=== PATIENT | female | born 1940 | race Caucasian/White ===

== ENCOUNTER 2016-03-31 14:12 | Inpatient (IN) | payer MEDICARE, OTHER ==
--- NOTE | 2016-03-31 14:52 | ED ---
General Adult HPI - General Chief complaint: Weakness Stated complaint: Weakness Time Seen by Provider: 03/31/16 14:32 Source: patient, family, EMS, RN notes reviewed Mode of arrival: EMS Limitations: physical limitation - History of Present Illness Initial comments: Patient is a pleasant 75-year-old female presenting to the emergency Department with increased weakness. Patient has been under emotional stress for the past 4 days. Patient has been somewhat weak, especially today. Patient has redness of the mouth and around the PEG tube. Patient and family have noticed some drainage from the PEG tube. Patient had PEG tube placed in the spring secondary to not eating well however overall patient has been eating well recently. Patient does complain of sore throat. No chest pain. No dyspnea. EMS reported fever however patient had not documented fever in the emergency department. - Related Data Home Medications Medication Instructions Recorded Confirmed Lisinopril [Zestril] 10 mg PEG/G-TUBE BID 05/20/15 03/31/16 Pregabalin [Lyrica] 75 mg PEG/G-TUBE HS 05/20/15 03/31/16 ALPRAZolam [Xanax] 0.25 mg PEG/G-TUBE BID 08/15/15 03/31/16 Albuterol Nebulized [Ventolin 2.5 mg INHALATION RT-QID PRN 08/15/15 03/31/16 Nebulized] Pregabalin [Lyrica] 150 mg PEG/G-TUBE QAM 08/15/15 03/31/16 Atenolol [Tenormin] 50 mg PEG/G-TUBE BID 03/31/16 03/31/16 HYDROcodone/APAP 10-325MG [[place] 1 tab PEG/G-TUBE DAILY 03/31/16 03/31/16 10-325] Levothyroxine Sodium [Synthroid] 50 mcg PEG/G-TUBE DAILY 03/31/16 03/31/16 Meloxicam [Mobic] 7.5 mg PO BID 03/31/16 03/31/16 Omeprazole 20 mg PEG/G-TUBE BID 03/31/16 03/31/16 Tiotropium [place] [Spiriva] 1 cap INHALATION RT-DAILY 03/31/16 03/31/16 buPROPion HCL [buPROPion HCL SR] 150 mg PEG/G-TUBE BID 03/31/16 03/31/16 Allergies Allergy/AdvReac Type Severity Reaction Status Date / Time Iodinated Contrast Media - Allergy Unknown Verified 03/31/16 15:09 Oral and Review of Systems ROS Statement: Those systems with pertinent positive or pertinent negative responses have been documented in the HPI. ROS Other: All systems not noted in ROS Statement are negative. Constitutional: Reports: weakness. Denies: chills Eyes: Denies: eye pain ENT: Reports: throat pain. Denies: ear pain Respiratory: Reports: cough Cardiovascular: Denies: chest pain Endocrine: Reports: fatigue Gastrointestinal: Denies: abdominal pain, vomiting Genitourinary: Denies: dysuria Musculoskeletal: Denies: back pain Skin: Reports: rash Neurological: Reports: weakness Past Medical History Past Medical History: Cancer, COPD, Fibromyalgia, GERD/Reflux, Hyperlipidemia, Hypertension, Osteoarthritis (OA), Pneumonia Additional Past Medical History / Comment(s): Lung cancer, UTI, after lung sx had fluid around the heart History of Any Multi-Drug Resistant Organisms: MRSA Date of last positivie culture/infection: 08/15/15 MDRO Source:: sputum Past Surgical History: Cholecystectomy, Hysterectomy, Tonsillectomy Additional Past Surgical History / Comment(s): neck sx x 2 fusions, left lobectomy, rt hip broken-had sx to repair-pt poor historian as to what was done.cataracts Past Anesthesia/Blood Transfusion Reactions: No Reported Reaction Past Psychological History: Depression Additional Psychological History / Comment(s): . Prior smoker. No experience. No international travel. No animals in the home Smoking Status: Former smoker Past Alcohol Use History: None Reported Additional Past Alcohol Use History / Comment(s): started smoking at age 18, stopped in 2006 Past Drug Use History: None Reported - Past Family History Father Family Medical History: Dementia Additional Family Medical History / Comment(s): lived to be 92 Mother Family Medical History: Hypertension Additional Family Medical History / Comment(s): lived to be 93 General Exam Limitations: physical limitation General appearance: alert, in no apparent distress Head exam: Present: atraumatic Eye exam: Present: normal appearance, PERRL ENT exam: Present: normal oropharynx Neck exam: Present: normal inspection Respiratory exam: Present: rhonchi Cardiovascular Exam: Present: regular rate, normal rhythm GI/Abdominal exam: Present: soft, other (PEG tube present with approximately 3 cm circumferential surrounding erythema with dryness.). Absent: tenderness Extremities exam: Present: normal inspection Neurological exam: Present: alert. Absent: motor sensory deficit Psychiatric exam: Present: normal affect, normal mood Skin exam: Present: rash (Erythema with bilateral lateral lips and around PEG tube site.) Course Vital Signs 03/31/16 14:32 Temperature 98.0 F Pulse Rate 71 Respiratory 17 Rate Blood Pressure 157/69 O2 Sat by Pulse 97 Oximetry - Reevaluation(s) Reevaluation #1: 03/31/16 14:50 Oral temperature by myself at 99.0 EKG Findings - EKG Comments: EKG Findings:: Normal sinus rhythm at 73. OH 162. QRS 104. QT 416. QTC 458. Normal axis. Normal QRS. No acute ST change. Medical Decision Making - Medical Decision Making Patient reexamined and resting comfortably in bed. Patient and family updated. Case was discussed in detail with Dr. Bond, who will admit his patient with consult for Dr. Gordon and infectious disease. - Lab Data Result diagrams: 03/31/16 17:55 03/31/16 15:15 Lab Results 03/31/16 03/31/16 03/31/16 Range/Units 15:15 15:15 15:15 WBC (3.8-10.6) k/uL RBC (3.80-5.40) m/uL Hgb (11.4-16.0) gm/dL Hct (34.0-46.0) % MCV (80.0-100.0) fL MCH (25.0-35.0) pg MCHC (31.0-37.0) g/dL RDW (11.5-15.5) % Plt Count (150-450) k/uL Neutrophils % % Lymphocytes % % Monocytes % % Eosinophils % % Basophils % % Neutrophils # (1.3-7.7) k/uL Lymphocytes # (1.0-4.8) k/uL Monocytes # (0-1.0) k/uL Eosinophils # (0-0.7) k/uL Basophils # (0-0.2) k/uL Hypochromasia Anisocytosis PT (9.0-12.0) sec INR (<1.1) APTT (22.0-30.0) sec Sodium 143 (137-145) mmol/L Potassium 4.9 (3.5-5.1) mmol/L Chloride 115 H (98-107) mmol/L Carbon Dioxide 22 (22-30) mmol/L Anion Gap 6 mmol/L BUN 21 H (7-17) mg/dL Creatinine 0.80 (0.52-1.04) mg/dL Est GFR (MDRD) Af Amer >60 (>60 ml/min/1.73 sqM) Est GFR (MDRD) Non-Af >60 (>60 ml/min/1.73 sqM) Glucose 81 (74-99) mg/dL Plasma Lactic Acid [place] 0.9 (0.7-2.0) mmol/L Calcium 8.6 (8.4-10.2) mg/dL Total Bilirubin 0.2 (0.2-1.3) mg/dL AST 18 (14-36) U/L ALT 27 (9-52) U/L Alkaline Phosphatase 56 (38-126) U/L Total Creatine Kinase 34 (30-135) U/L CK-MB (CK-2) 0.7 (0.0-2.4) ng/mL CK-MB (CK-2) Rel Index 2.1 Troponin I <0.012 (0.000-0.034) ng/mL Total Protein 4.9 L (6.3-8.2) g/dL Albumin 2.9 L (3.5-5.0) g/dL Cortisol 6 ug/dL Urine Color Urine Appearance (Clear) Urine pH (5.0-8.0) Ur Specific [place] (1.001-1.035) Urine Protein (Negative) Urine Glucose (UA) (Negative) Urine Ketones (Negative) Urine Blood (Negative) Urine Nitrate (Negative) Urine Bilirubin (Negative) Urine Urobilinogen (<2.0) mg/dL Ur Leukocyte Esterase (Negative) Urine RBC (0-5) /hpf Urine WBC (0-5) /hpf Urine WBC Clumps (None) /hpf Ur Squamous Epith Cells (0-4) /hpf Urine Bacteria (None) /hpf Group A Strep Rapid (Negative) 03/31/16 03/31/16 03/31/16 Range/Units 15:18 15:30 17:14 WBC (3.8-10.6) k/uL RBC (3.80-5.40) m/uL Hgb (11.4-16.0) gm/dL Hct (34.0-46.0) % MCV (80.0-100.0) fL MCH (25.0-35.0) pg MCHC (31.0-37.0) g/dL RDW (11.5-15.5) % Plt Count (150-450) k/uL Neutrophils % % Lymphocytes % % Monocytes % % Eosinophils % % Basophils % % Neutrophils # (1.3-7.7) k/uL Lymphocytes # (1.0-4.8) k/uL Monocytes # (0-1.0) k/uL Eosinophils # (0-0.7) k/uL Basophils # (0-0.2) k/uL Hypochromasia Anisocytosis PT 10.6 (9.0-12.0) sec INR 1.1 (<1.1) APTT 23.1 (22.0-30.0) sec Sodium (137-145) mmol/L Potassium (3.5-5.1) mmol/L Chloride (98-107) mmol/L Carbon Dioxide (22-30) mmol/L Anion Gap mmol/L BUN (7-17) mg/dL Creatinine (0.52-1.04) mg/dL Est GFR (MDRD) Af Amer (>60 ml/min/1.73 sqM) Est GFR (MDRD) Non-Af (>60 ml/min/1.73 sqM) Glucose (74-99) mg/dL Plasma Lactic Acid [place] (0.7-2.0) mmol/L Calcium (8.4-10.2) mg/dL Total Bilirubin (0.2-1.3) mg/dL AST (14-36) U/L ALT (9-52) U/L Alkaline Phosphatase (38-126) U/L Total Creatine Kinase (30-135) U/L CK-MB (CK-2) (0.0-2.4) ng/mL CK-MB (CK-2) Rel Index Troponin I (0.000-0.034) ng/mL Total Protein (6.3-8.2) g/dL Albumin (3.5-5.0) g/dL Cortisol ug/dL Urine Color Colorless Urine Appearance Clear (Clear) Urine pH 5.5 (5.0-8.0) Ur Specific [place] 1.005 (1.001-1.035) Urine Protein Negative (Negative) Urine Glucose (UA) Negative (Negative) Urine Ketones Negative (Negative) Urine Blood Negative (Negative) Urine Nitrate Negative (Negative) Urine Bilirubin Negative (Negative) Urine Urobilinogen <2.0 (<2.0) mg/dL Ur Leukocyte Esterase Small H (Negative) Urine RBC <1 (0-5) /hpf Urine WBC 8 H (0-5) /hpf Urine WBC Clumps Rare H (None) /hpf Ur Squamous Epith Cells 1 (0-4) /hpf Urine Bacteria Occasional H (None) /hpf Group A Strep Rapid Negative (Negative) 03/31/16 Range/Units 17:55 WBC 5.8 (3.8-10.6) k/uL RBC 3.77 L (3.80-5.40) m/uL Hgb 10.1 L (11.4-16.0) gm/dL Hct 32.8 L (34.0-46.0) % MCV 87.1 (80.0-100.0) fL MCH 26.7 (25.0-35.0) pg MCHC 30.7 L (31.0-37.0) g/dL RDW 17.8 H (11.5-15.5) % Plt Count 252 (150-450) k/uL Neutrophils % 74 % Lymphocytes % 16 % Monocytes % 6 % Eosinophils % 2 % Basophils % 0 % Neutrophils # 4.3 (1.3-7.7) k/uL Lymphocytes # 0.9 L (1.0-4.8) k/uL Monocytes # 0.3 (0-1.0) k/uL Eosinophils # 0.1 (0-0.7) k/uL Basophils # 0.0 (0-0.2) k/uL Hypochromasia Marked Anisocytosis Slight PT (9.0-12.0) sec INR (<1.1) APTT (22.0-30.0) sec Sodium (137-145) mmol/L Potassium (3.5-5.1) mmol/L Chloride (98-107) mmol/L Carbon Dioxide (22-30) mmol/L Anion Gap mmol/L BUN (7-17) mg/dL Creatinine (0.52-1.04) mg/dL Est GFR (MDRD) Af Amer (>60 ml/min/1.73 sqM) Est GFR (MDRD) Non-Af (>60 ml/min/1.73 sqM) Glucose (74-99) mg/dL Plasma Lactic Acid [place] (0.7-2.0) mmol/L Calcium (8.4-10.2) mg/dL Total Bilirubin (0.2-1.3) mg/dL AST (14-36) U/L ALT (9-52) U/L Alkaline Phosphatase (38-126) U/L Total Creatine Kinase (30-135) U/L CK-MB (CK-2) (0.0-2.4) ng/mL CK-MB (CK-2) Rel Index Troponin I (0.000-0.034) ng/mL Total Protein (6.3-8.2) g/dL Albumin (3.5-5.0) g/dL Cortisol ug/dL Urine Color Urine Appearance (Clear) Urine pH (5.0-8.0) Ur Specific [place] (1.001-1.035) Urine Protein (Negative) Urine Glucose (UA) (Negative) Urine Ketones (Negative) Urine Blood (Negative) Urine Nitrate (Negative) Urine Bilirubin (Negative) Urine Urobilinogen (<2.0) mg/dL Ur Leukocyte Esterase (Negative) Urine RBC (0-5) /hpf Urine WBC (0-5) /hpf Urine WBC Clumps (None) /hpf Ur Squamous Epith Cells (0-4) /hpf Urine Bacteria (None) /hpf Group A Strep Rapid (Negative) - Radiology Data Radiology results: image reviewed (Chest x-ray shows postoperative changes. Left pneumonectomy.) Disposition Clinical Impression: Cellulitis Disposition: ADMITTED IP TO THIS HOSP
[2016-03-31 15:37] LABS: ALT 27 U/L (9-52); AST 18 U/L (14-36); Alkaline Phosphatase 56 U/L (38-126); Anion Gap 6 mmol/L; Blood Urea Nitrogen 21 mg/dL (7-17); Calcium 8.6 mg/dL (8.4-10.2); Carbon Dioxide 22 mmol/L (22-30); Chloride 115 mmol/L (98-107); Glucose 81 mg/dL (74-99); Non-African American GFR(MDRD) >60 (>60 ml/min/1.73 sqM); Potassium 4.9 mmol/L (3.5-5.1); Sodium 143 mmol/L (137-145); Total Bilirubin 0.2 mg/dL (0.2-1.3); Total Protein 4.9 g/dL (6.3-8.2)
[2016-03-31 15:45] LABS: Creatine Kinase 34 U/L (30-135)
--- NOTE | 2016-03-31 15:55 | XR ---
EXAMINATION TYPE: XR chest 2V DATE OF EXAM: 03/31/2016 3:38 PM COMPARISON: Prior chest x-ray 05 September 2015 HISTORY: Fever, weakness, lung carcinoma TECHNIQUE: Frontal and lateral views of the chest are obtained. FINDINGS: Patient is status post left pneumonectomy, there is volume loss in the left chest, compens atory emphysema in the right chest. Postop changes noted to the cervical spine and in the right upper quadrant. Strand-like densities, hyperinflation in the right lung suggests underlying emphysema as o n prior exam. IMPRESSION: Postop changes. Probable pleural thickening, scarring in the right chest. Emphysema.
[2016-03-31 15:58] LABS: Creatine Kinase MB 0.7 ng/mL (0.0-2.4); Troponin I <0.012 ng/mL (0.000-0.034)
[2016-03-31 16:16] LABS: INR 1.1 (<1.1); Partial Thromboplastin Time 23.1 sec (22.0-30.0); Prothrombin Time 10.6 sec (9.0-12.0)
[2016-03-31] MEDS: SODIUM CHLORIDE 0.9% 500 ML IV SCH (16:17)
[2016-03-31 17:30] LABS: Appearance,Urine Clear (Clear); Bacteria,Urine Occasional /hpf; Bilirubin,Urine Negative (Negative); Glucose,Urine (UA) Negative (Negative); Ketones,Urine Negative (Negative); Leukocyte Esterase,Urine Small (Negative); Nitrite,Urine Negative (Negative); PH, Urine 5.5 (5.0-8.0); Particle Count 2719; Protein,Urine Negative (Negative); RBC,Urine <1 /hpf (0-5); Specific Gravity,Urine 1.005 (1.001-1.035); Squamous Epithelial Cell,Urine 1 /hpf (0-4); UA Billing (MACRO vs. MICRO) MICRO; Urobilinogen,Urine <2.0 mg/dL (<2.0); WBC,Urine 8 /hpf (0-5)
[2016-03-31 18:12] LABS: Anisocytosis Slight; Basophils % (A) 0 %; CH 25.9; CHCM 29.9; Eosinophils # (A) 0.1 k/uL (0-0.7); Eosinophils % (A) 2 %; HCT 32.8 % (34.0-46.0); HDW 2.67; HGB 10.1 gm/dL (11.4-16.0); Hypochromasia Marked; Luc # (Auto) 0.12; Luc % (Auto) 2; Lymphocytes # (A) 0.9 k/uL (1.0-4.8); Lymphocytes % (A) 16 %; MCH 26.7 pg (25.0-35.0); MCHC 30.7 g/dL (31.0-37.0); MCV 87.1 fL (80.0-100.0); Mean Platelet Volume 7.7; Monocytes # (A) 0.3 k/uL (0-1.0); Monocytes % (A) 6 %; Neutrophils # (A) 4.3 k/uL (1.3-7.7); Neutrophils % (A) 74 %; RBC 3.77 m/uL (3.80-5.40); RDW 17.8 % (11.5-15.5); WBC 5.8 k/uL (3.8-10.6); WBC (Perox) 5.96
[2016-03-31] MEDS ORDERED: NALOXONE 0.4 MG/ML 1 ML VIAL IV PRN (19:33)
[2016-03-31] MEDS ORDERED: AMPICILLIN-SULBACTAM 1.5 GM in SODIUM CHLORIDE 0.9% 50 ML IVPB STA (19:36)
[2016-03-31] MEDS: SODIUM CHLORIDE 0.9% 1,000 ML IV SCH (19:45)
[2016-03-31] MEDS ORDERED: FLUCONAZOLE IN NACL,ISO-OSM 200 MG in SALINE 1 100ML.BAG IVPB SCH (19:45)
[2016-03-31] MEDS: PANTOPRAZOLE 40 MG/10 ML VIAL IV SCH (23:09)
[2016-03-31 23:15] LABS: Creatine Kinase 30 U/L (30-135)
[2016-03-31 23:29] LABS: Creatine Kinase MB 0.7 ng/mL (0.0-2.4); Troponin I <0.012 ng/mL (0.000-0.034)
[2016-04-01] MEDS: AMPICILLIN-SULBACTAM 1.5 GM in SODIUM CHLORIDE 0.9% 50 ML IVPB SCH ×5 (00:48→23:17)
[2016-04-01 04:18] LABS: Creatine Kinase 27 U/L (30-135)
[2016-04-01 04:31] LABS: Creatine Kinase MB 0.7 ng/mL (0.0-2.4); Troponin I <0.012 ng/mL (0.000-0.034)
[2016-04-01] MEDS ORDERED: ALBUTEROL NEBULIZED 2.5 MG/3 ML INHALATION PRN (07:58)
[2016-04-01] MEDS ORDERED: NON-FORMULARY DRUG (Omeprazole [Omeprazole] 20 MG) PEG/G-TUBE SCH (09:00)
[2016-04-01] MEDS: ALPRAZolam 0.5 MG TAB PEG/G-TUBE SCH ×2 (09:13→21:00)
[2016-04-01] MEDS: ATENOLOL 50 MG TAB PEG/G-TUBE SCH ×2 (09:13→21:00)
[2016-04-01] MEDS: LEVOTHYROXINE 50 MCG TAB PEG/G-TUBE SCH (09:14)
[2016-04-01] MEDS: LISINOPRIL 10 MG TAB PEG/G-TUBE SCH ×2 (09:14→21:00)
[2016-04-01] MEDS: MELOXICAM 7.5 MG TAB PO SCH ×2 (09:14→21:00)
[2016-04-01] MEDS: PREGABALIN 75 MG CAP PEG/G-TUBE SCH (09:16)
[2016-04-01] MEDS: HYDROcodone/APAP 10-325MG 1 EACH TAB PEG/G-TUBE PRN ×2 (09:36→16:05)
[2016-04-01] MEDS: buPROPion SR 150 MG TABLET.ER PO SCH ×2 (10:51→21:00)
[2016-04-01] MEDS: PANTOPRAZOLE 40 MG/10 ML VIAL IV SCH (10:51)
[2016-04-01] MEDS: TIOTROPIUM 18 MCG/PUFF INHALER INHALATION SCH (11:46)
[2016-04-01] MEDS: SODIUM CHLORIDE 0.9% 1,000 ML IV SCH ×2 (12:31→22:50)
[2016-04-01] MEDS ORDERED: IV VANCOMYCIN PER PHARMACY 1 EACH MISC MISCELLANE PRN (13:12)
[2016-04-01] MEDS: VANCOMYCIN 750 MG in SODIUM CHLORIDE 0.9% 250 ML IVPB SCH (14:14)
[2016-04-01] MEDS: NYSTATIN 100,000UNIT/GM CREAM 30 GM TUBE TOPICAL SCH ×2 (14:16→21:01)
[2016-04-01 14:26] VITALS: BMI 17.6
--- NOTE | 2016-04-01 15:39 | HP ---
DATE OF ADMISSION: 03/31/2016 CHIEF COMPLAINT: Severe weakness. HISTORY OF PRESENT ILLNESS: 75-year-old white female that came to my office. She was brought into the back door. Unfortunately, she was so weak she could not get out of the car, even though she had tremendous amount of weakness and at that period of time EMS were there, vital signs were stable and she was taken to the hospital. She had a low-grade fever supposedly at home. She has a past medical history of being at [facility] in July. She was admitted that time with pneumonia and right-sided felt it was probably aspiration type. She was followed up at that time with Dr. Horner and was treated with antibiotics and sent home. 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 There was an unknown site, but positive lymph node so she was treated aggressively with chemotherapy per Dr. Kevin and also radiation per Dr. Nguyễn. She has a past medical history of type 2 diabetes, which was in good control. She had non-small cell carcinoma of the lung 11 years ago and had pneumectomy with it with chemotherapy and has been followed very carefully by both myself and Dr. Kevin and has had no exacerbation. She, from a surgical standpoint, she has had a cholecystectomy. She has had neck surgery, cervical spine with Dr. Killian. She had pneumectomy for carcinoma of the lung. She had a hysterectomy and a tonsillectomy. She has had long-standing history of chronic obstructive pulmonary disease. ALLERGIES: JUST TO THE CONTRAST DYE IN GENERAL. She has a long-standing history of ( ). She has had MRSA in the past, it was in her sputum and that culture was in July 2015. MEDICATIONS: 1. Albuterol updrafts up to 4 times a day. 2. She usually uses Duoneb 4 times a day. 3. She uses Flonase nasal spray in each nostril once a day. 4. Spiriva 18 mg daily. 5. [place] 7.5/325 about every 6 hours. 6. Atenolol 25 b.i.d. 7. BuSpar twice a day. 8. She is on Celexa 20 mg daily. 9. Klonopin patch 0.2 on . 10. Pepcid 20 twice a day. 11. She gets lactulose up to 15 mL at bedtime for constipation. 12. Lisinopril 10 mg twice a day. 13. Lyrica 75 mg at lunch and 150 at bedtime for fibromyalgia. 14. Xanax 0.25 p.r.n. anxiety. REVIEW OF SYSTEMS: CARDIOPULMONARY: She has really had no cough, no true chest pain. Minimal to no shortness of breath, which is very weak. GI: She has had a long-time decrease in appetite and she does use her bolus feedings up to 3 times a day and appears to have a rash around the abdomen on further investigation. She has not been constipated but there has been no diarrhea and no true vomiting. GENITOURINARY: She has had a history of urinary tract infections in the past, multiple different types of organisms and has been on IV antibiotics accordingly. NEUROMUSCULAR: Just weak in general, though she has been ambulatory on her own. She has had someone drive her back and forth to the office for the last several years. Physical examination at this period of time: Blood pressure is 145/66, heart rates in the 70s, temperature 95, respiratory rate is 20. ENT: She has a dry mouth. Neck is supple. Chest: Course in the non-pneumectomy side of the lung is clear to auscultation. Heart is sinus rhythm at this time with no murmur. ABDOMEN: Soft. She has got irritation around the ( ) that I can see around the NG tube it looks to be more mycotic but we will get a surgical decision with Dr. Gordon. ABDOMEN: Soft, nontender, with no organomegaly. EXTREMITIES: Lower extremities are negative. ASSESSMENT: 1. Cellulitis of the abdomen. 2. History of chronic obstructive pulmonary disease. 3. History of urinary tract infection and past. 4. Previous pneumectomy for cancer of the lung. 5. Recent squamous cell cancer of the neck treated with aggressive radiation and chemotherapy. 6. Chronic esophagitis treated with PEG tube feedings. 7. Constipation. 8. Hypertension. 9. Fibromyalgia. 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 11. History of gastroesophageal reflux disease. PLAN: The chest x-ray was completed, which showed no acute changes. Her urine being cultured. Her throat was cultured for strep throat. Still waiting for the results of that. Wound culture was done of the area of irritation by the PEG tube. We will get a surgical consultation. She was initially started on Augmentin and Diflucan IV every 6 hours. Please refer to my orders.
--- NOTE | 2016-04-01 16:21 | P.GSHP ---
History of Present Illness H&P Date: 04/01/16 Chief Complaint: generalized weakness, redness of the mouth and around PEG tube Patient is a 75-year-old female admitted through the emergency department with complaints of increased weakness, redness of the mouth and around her PEG tube. Patient was also complaining of a sore throat and difficulty swallowing. Apparently patient underwent radiation of her neck last year for squamous cell carcinoma and developed esophagitis. Patient subsequently had PEG tube placed for malnutrition. Patient states that over the last couple of weeks, she has been eating well and only used the PEG tube for approximately 1 can of tube feeding daily. Surgical consult requested for evaluation and possible removal of PEG tube and possible EGD. Past Medical History Past Medical History: Cancer, COPD, Fibromyalgia, GERD/Reflux, Hyperlipidemia, Hypertension, Osteoarthritis (OA), Pneumonia Additional Past Medical History / Comment(s): Lung cancer, UTI, after lung sx had fluid around the heart History of Any Multi-Drug Resistant Organisms: MRSA Date of last positivie culture/infection: 08/15/15 MDRO Source:: sputum Past Surgical History: Cholecystectomy, Hysterectomy, Tonsillectomy Additional Past Surgical History / Comment(s): neck sx x 2 fusions, left lobectomy, rt hip broken-had sx to repair-pt poor historian as to what was done.cataracts Past Anesthesia/Blood Transfusion Reactions: No Reported Reaction Past Psychological History: Depression Additional Psychological History / Comment(s): . Prior smoker. No experience. No international travel. No animals in the home Smoking Status: Former smoker Past Alcohol Use History: None Reported Additional Past Alcohol Use History / Comment(s): started smoking at age 18, stopped in 2006 Past Drug Use History: None Reported - Past Family History Father Family Medical History: Dementia Additional Family Medical History / Comment(s): lived to be 92 Mother Family Medical History: Hypertension Additional Family Medical History / Comment(s): lived to be 93 Medications and Allergies Home Medications Medication Instructions Recorded Confirmed Type Lisinopril [Zestril] 10 mg PEG/G-TUBE BID 05/20/15 03/31/16 History Pregabalin [Lyrica] 150 mg PEG/G-TUBE HS 05/20/15 04/01/16 History ALPRAZolam [Xanax] 1 mg PEG/G-TUBE BID 08/15/15 04/01/16 History Albuterol Nebulized [Ventolin 2.5 mg INHALATION RT-QID PRN 08/15/15 03/31/16 History Nebulized] Pregabalin [Lyrica] 75 mg PEG/G-TUBE QAM 08/15/15 04/01/16 History Atenolol [Tenormin] 50 mg PEG/G-TUBE BID 03/31/16 03/31/16 History HYDROcodone/APAP 10-325MG [[place] 1 tab PEG/G-TUBE Q6HR PRN 03/31/16 04/01/16 History 10-325] Levothyroxine Sodium [Synthroid] 50 mcg PEG/G-TUBE DAILY 03/31/16 03/31/16 History Meloxicam [Mobic] 7.5 mg PO BID 03/31/16 03/31/16 History Omeprazole 20 mg PEG/G-TUBE BID 03/31/16 03/31/16 History Tiotropium [place] [Spiriva] 1 cap INHALATION RT-DAILY 03/31/16 03/31/16 History buPROPion HCL [buPROPion HCL SR] 150 mg PEG/G-TUBE BID 03/31/16 03/31/16 History Allergies Allergy/AdvReac Type Severity Reaction Status Date / Time Iodinated Contrast Media - Allergy Unknown Verified 03/31/16 15:09 Oral and Surgical - Exam Vital Signs Temp Pulse Resp BP Pulse Ox 98.0 F 71 17 157/69 97 03/31/16 14:32 03/31/16 14:32 03/31/16 14:32 03/31/16 14:32 03/31/16 14:32 GENERAL: Pt awake and alert, thin-appearing, and in no acute distress. ENT: neck supple.Dry mucous membranes. LUNGS: Breath sounds course to auscultation. HEART: Heart S1, S2, no S3 or S4. regular rate and rhythm.No murmurs, rubs or gallops. ABDOMEN: Soft, nontender, nondistended, normoactive bowel sounds. No guarding, no rebound. No masses or organomegaly appreciated. PEG tube present, clamped. SKIN: Circumferential erythema around PEG tube site insertion with no obvious purulent drainage noted at this time. Results - Labs 03/31/16 17:55 03/31/16 15:15 Abnormal Lab Results - Last 24 Hours (Table) 04/01/16 Range/Units 03:34 Total Creatine Kinase 27 L (30-135) U/L Assessment and Plan Plan: Impression: 1. Cellulitis to peg tube insertion site. 2. Dysphagia with history of chronic esophagitis status post chemo and radiation for squamous cell neck cancer. Plan: 1. Remove peg tube. Continue IV antibiotics per infectious disease service. Continue supportive treatment. Continue to follow the primary service. The above impression and plan have been discussed and directed by Dr. Gordon. William BARON acting as scribe for Dr. Gordon.
--- NOTE | 2016-04-01 17:44 | P.OP ---
Date of Procedure: 04/01/16 Preoperative Diagnosis: History of malnutrition Postoperative Diagnosis: History of malnutrition Procedure(s) Performed: Removal of l PEG tube Anesthesia: none Surgeon: Anupam Gordon Pathology: none sent Condition: stable Disposition: floor Description of Procedure: The patient's placed in supine position. Using gentle traction the PEG tube was removed. An occlusive dressing was placed in the abdominal wall.
[2016-04-01] MEDS: FLUCONAZOLE 100 MG TAB PO SCH (21:00)
[2016-04-01] MEDS ORDERED: PREGABALIN 75 MG CAP PEG/G-TUBE SCH (21:00)
[2016-04-02] MEDS: LISINOPRIL 10 MG TAB PEG/G-TUBE SCH ×3 (01:13→21:22)
[2016-04-02] MEDS: LEVOTHYROXINE 50 MCG TAB PEG/G-TUBE SCH (06:22)
[2016-04-02] MEDS: AMPICILLIN-SULBACTAM 1.5 GM in SODIUM CHLORIDE 0.9% 50 ML IVPB SCH ×3 (06:22→18:02)
[2016-04-02] MEDS: HYDROcodone/APAP 10-325MG 1 EACH TAB PEG/G-TUBE PRN ×2 (06:31→23:37)
[2016-04-02] MEDS: ATENOLOL 50 MG TAB PEG/G-TUBE SCH ×2 (08:24→21:23)
[2016-04-02] MEDS: PANTOPRAZOLE 40 MG/10 ML VIAL IV SCH (08:24)
[2016-04-02] MEDS: VANCOMYCIN 750 MG in SODIUM CHLORIDE 0.9% 250 ML IVPB SCH (08:24)
[2016-04-02] MEDS: buPROPion SR 150 MG TABLET.ER PO SCH ×2 (08:24→21:22)
[2016-04-02] MEDS: MELOXICAM 7.5 MG TAB PO SCH ×2 (08:24→21:22)
[2016-04-02] MEDS: NYSTATIN 100,000UNIT/GM CREAM 30 GM TUBE TOPICAL SCH ×3 (08:24→21:26)
[2016-04-02] MEDS: PREGABALIN 75 MG CAP PEG/G-TUBE SCH ×3 (08:24→13:47)
[2016-04-02] MEDS: ALPRAZolam 0.5 MG TAB PEG/G-TUBE SCH ×2 (08:24→21:22)
--- NOTE | 2016-04-02 11:06 | CONS ---
DATE OF CONSULTATION: DATE OF SERVICE: 04/01/2016 REASON FOR CONSULTATION: 1. Peg tube site infection. 2. Bacteremia. 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 Post radiation, the patient did have poor oral intake for which the patient underwent a PEG tube placement in June of 2015. Patient now has been presenting to the hospital with the chief complaints of swelling and drainage around the PEG tube site and feeling very weak. The patient said her symptoms started more than a week ago for which the patient has been evaluated by her primary care physician who did prescribe her some antibiotics. The patient says that the redness and the drainage has slightly improved. However, the patient did have extreme weakness and no energy. She has been complaining of dull pain 3 to 4 out of 10 and no radiation. Patient denies any high-grade fever though With these symptoms, the patient sent to the hospital. The patient has been evaluated. She did have blood cultures obtained and was started on Unasyn. Blood culture came back positive with Gram positive cocci at the time of my evaluation. REVIEW OF SYSTEMS: CONSTITUTIONAL: Positive for weakness. No fever or chills. EYES: No complaint. ENT: No complaint. RESPIRATORY: No complaint. CARDIOVASCULAR: No complaint. GENITOURINARY: No complaint. GASTROINTESTINAL: As per HPI. MUSCULOSKELETAL: No complaint. INTEGUMENTARY: No complaint. PSYCHOLOGIC: No complaint. ENDOCRINE: No complaint. NEUROLOGIC: No complaint. Past medical history is significant for history of lung cancer, fibromyalgia, COPD, gastroesophageal reflux disease, hyperlipidemia, hypertension, osteoarthritis, pneumonia and squamous cell carcinoma of the neck, radiation esophagitis and MRSA pneumonia. PAST SURGICAL HISTORY: Cholecystectomy, hysterectomy, tonsillectomy, neck surgery with fusion x2, left lobectomy, right hip fracture repair. SOCIAL HISTORY: The patient is . Remote history of smoking, quit back in 2006. No drug use. FAMILY HISTORY: Father had history of dementia, lived to be 92. Mother had history of hypertension, lived to be 93. Allergies to IODINATED CONTRAST DYE. Medications include the patient is on [place], Ventolin, Xanax, Unasyn 1.5 q.6. She is Tenormin, Wellbutrin, Diflucan, Synthroid, Zestril, Mobic, Narcan, Protonix, Lyrica. On examination, blood pressure is 138/54 with a pulse of 67, temperature 98. She is 99% on 2 L nasal cannula. General description is an elderly female, lying in bed, in no distress. HEENT examination shows pallor and no scleral icterus. Oral mucous membranes dry with some thrush. NECK: Trachea is central. No thyromegaly. LUNGS: Unlabored breathing. Clear to auscultation anteriorly. HEART: S1, S2, regular rate and rhythm. ABDOMEN: Soft. PEG tube, distended, has surrounding erythema. EXTREMITIES: No edema of feet. SKIN EXAMINATION: No rash or mass palpable. NEUROLOGICAL: The patient is awake, alert, oriented x3. Mood and affect normal. LABS: Hemoglobin is 10.1, white count 5.8. Urine has been negative. BUN of 21, creatinine 0.80. Electrolytes have been normal. Liver enzymes are normal. Blood cultures with presumptive MRSA. The PEG tube site with presumption MRSA and gram negative bacilli. DIAGNOSTIC IMPRESSION AND PLAN: Patient with methicillin-resistant Staphylococcus aureus bacteremia, source is PEG tube site infection for which the patient is scheduled to have removal of this PEG tube. In view of the bacteremia, we will need to make sure there is no evidence of any deep collection. PLAN: 1. Blood cultures x1 to make sure no evidence of any persistant bacteremia. 2. Vancomycin pharmacy to dose, target trough of 15. 3. I will obtain a CT of abdomen and pelvis without contrast as the patient does have allergy to the same to make sure there is no evidence of any deep collection. 4. Will follow up on the clinical condition and cultures to further adjust the medication if needed. Thank you for this consultation. Will follow this patient along with you. AICHA
--- NOTE | 2016-04-02 11:36 | CDI ---
In responding to this query, please exercise your independent professional judgment. The [facility] Coding Staff and Clinical Documentation Specialists appreciate your assistance in clarifying documentation, maintaining compliance with coding guidelines, accurately documenting patients condition and capturing severity of illness. The fact that a question is asked does not imply that any particular answer is desired or expected. Communication forms are a method of clarifying documentation and are not made part of the Legal Health Record. Thank you in advance for your clarification. Last Revision, January 2015 Elkin Garcia [address] [facility] [place] [address] Documentation Clarification Form Date: 04/02/2016 11:21:00 AM From: Divya Tubbs Admit Date: 03/31/2016 7:32:00 PM Patient Name: Litzy Hebert Visit Number: [id number] Discharge Date: Dr. Edy Bond Malnutrition has been documented in H/P on 04/01/16. History/Risk Factors: Lung cancer, Hypertension, COPD, Squamous cell CA of neck , esophagitis Clinical Indicators: Patient underwent radiation of her neck for squamous cell carcinoma and developed esophagitis. She had a PEG tube placed for malnutrition. She has dysphagia and is complaining of sore throat and difficulty swallowing. Vital signs: 145/66 70 20 95. Labs: Albumin 2.9, Total Protein 4.9 Current BMI: 17.7 Insufficient energy intake: Yes, Underweight Weight Loss: Yes Treatment: IV Fluids Dietary Consult: Yes Supplements: Ensure Lab monitoring: In your professional opinion, can you please clarify if these findings signify one of the following conditions? Mild Protein Malnutrition Mild Protein-Calorie Malnutrition Moderate Protein Malnutrition Moderate Protein-Calorie Malnutrition Severe Protein Malnutrition Severe Protein-Calorie Malnutrition Malnutrition following GI surgery Malnutrition Other condition, please specify Unable to determine Please document in your progress notes and discharge summary in order to capture severity of illness and risk of mortality. Include clinical findings that support your diagnosis. FYI: Press F11 to launch patient chart. Place X here if this finding has no clinical significance, is not applicable or if you are not able to provide any additional documentation. MTDD
[2016-04-02] MEDS: TIOTROPIUM 18 MCG/PUFF INHALER INHALATION SCH (13:40)
[2016-04-02] MEDS: SODIUM CHLORIDE 0.9% 1,000 ML IV SCH (13:40)
[2016-04-02] MEDS ORDERED: RX INFO: IV CONTRAST WAS GIVEN 1 EACH MISC MISCELLANE PRN (14:52)
--- NOTE | 2016-04-02 14:56 | P.PN ---
Subjective Principal diagnosis: Sepsis Patient is a 75-year-old female with complex medical history significant for squamous cell neck cancer status post chemo and radiation with chronic esophagitis requiring feeding tube for poor oral intake. Patient presented with complaints of generalized weakness, and redness and drainage around the PEG tube site. Dr. Gordon was consulted for surgical service and PEG tube was removed last night. Blood cultures with preliminary MRSA. Gram stain and culture with presumptive MRSA and gram-negative bacilli. Preliminary urine culture with gram-negative bacilli. Throat culture in process. Infectious disease consult has been requested for management of IV antibiotics. Upon examination, patient's site of the bed and states she feels much better than yesterday. Patient reports good appetite without nausea, vomiting, or abdominal pain. Patient denies dysphagia. Patient is urinating without difficulty. Denies increased shortness of breath chest pain. No evidence of fevers. Noted to be slightly hypertensive. Objective - Vital Signs Vital signs: Vital Signs Temp 97.9 F 04/02/16 07:00 Pulse 57 L 04/02/16 07:00 Resp 20 04/02/16 07:00 BP 175/72 04/02/16 07:00 Pulse Ox 100 04/02/16 07:00 Intake & Output 04/01/16 04/02/16 04/02/16 18:59 06:59 18:59 Intake Total 450 900 Balance 450 900 Weight 46.72 kg Intake: IV 900 Ampicillin-Sulbactam 1.5 50 gm In Sodium Chloride 0.9 % 50 ml @ 100 mls/hr IVPB Q6HR [facility] Rx#:[id number] Sodium Chloride 0.9% 1, 600 000 ml @ 75 mls/hr IV . [id number] [facility] Rx#:[id number] Vancomycin 750 mg In 250 Sodium Chloride 0.9% 250 ml @ 125 mls/hr IVPB Q24HR [facility] Rx#:[id number] Oral 450 Other: Voiding Method Bedside Commode # Voids 1 1 # Bowel Movements 1 - Exam GENERAL: Pt awake and alert, thin, and in no acute distress. HEAD: Atraumatic, normocephalic. EYES: Pupils equal and round. ENT: Dry mucous membranes. NECK:Supple without lymphadenopathy or JVD. LUNGS: Breath sounds coarse to auscultation bilaterally. HEART: Heart S1, S2, no S3 or S4. Regular rate and rhythm. No murmurs, rubs or gallops. ABDOMEN: Soft, nontender, nondistended, normoactive bowel sounds. No guarding, no rebound. Wound to previous PEG tube site with erythema, minimal drainage at this time. EXTREMITIES: 2+ peripheral pulses. No edema. No calf tenderness. NEUROLOGICAL: Pt oriented x 3. Cranial nerves II through XII grossly intact. Strength and sensation grossly intact. PSYCH: Normal mood, normal affect. SKIN: Warm, dry. - Labs CBC & Chem 7: 03/31/16 17:55 03/31/16 15:15 Assessment and Plan Plan: Impression: 1. Sepsis suspect secondary to infected PEG tube site incision. Wound and blood cultures with preliminary MRSA. Throat culture pending. 2. Urinary tract infection with preliminary urine culture positive for gram- negative bacilli. 3. Cellulitis of the abdomen. 4. Chronic obstructive pulmonary disease. 5. History of recent squamous cell cancer of the neck status post aggressive radiation and chemotherapy. 6. Moderate protein calorie malnutrition secondary to dysphagia secondary to chronic esophagitis with poor oral intake treated with PEG tube feedings. 7. History of constipation. 8. Hypertension. 9. Fibromyalgia. 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 11. History of gastroesophageal reflux disease. Plan: Continue antibiotics per infectious disease recommendations. Continue current medications. Will add hydralazine 25 mg by mouth twice a day for hypertension and monitor response. Continue local wound care to PEG tube site. Dietary consult for malnutrition. Continue GI and DVT prophylaxis. PTOT evaluation for possible placement to subacute rehab early next week. Repeat CBC and BMP in a.m. The above impression and plan have been discussed and directed by Dr. Bond. William BARON acting as scribe for Dr. Bond.
[2016-04-02] MEDS: IOHEXOL 350 MG/ML 25 ML BOTTLE (ORAL USE) PO PRN ×2 (15:22→16:17)
[2016-04-02] MEDS: hydrALAZINE HCL 25 MG TAB PO SCH ×2 (15:24→21:22)
--- NOTE | 2016-04-02 15:24 | P.PN ---
Subjective Patient is a 75-year-old female admitted generalized weakness and cellulitis to PEG site tube insertion with preliminary wound and blood cultures positive for MRSA. Last night PEG tube was removed by Dr. Gordon at bedside. Patient is feeling better. Denies chills, nausea, vomiting, increased shortness of breath, chest pain, or abdominal pain. Patient is tolerating a regular diet. Passing flatus with bowel movements. Urinating without difficulty. Afebrile. Objective - Vital Signs Vital signs: Vital Signs Temp 97.9 F 04/02/16 07:00 Pulse 57 L 04/02/16 07:00 Resp 20 04/02/16 07:00 BP 175/72 04/02/16 07:00 Pulse Ox 100 04/02/16 07:00 Intake & Output 04/01/16 04/02/16 04/02/16 18:59 06:59 18:59 Intake Total 450 900 Balance 450 900 Weight 46.72 kg Intake: IV 900 Ampicillin-Sulbactam 1.5 50 gm In Sodium Chloride 0.9 % 50 ml @ 100 mls/hr IVPB Q6HR [facility] Rx#:[id number] Sodium Chloride 0.9% 1, 600 000 ml @ 75 mls/hr IV . [id number] [facility]O Rx#:[id number] Vancomycin 750 mg In 250 Sodium Chloride 0.9% 250 ml @ 125 mls/hr IVPB Q24HR [facility] Rx#:[id number] Oral 450 Other: Voiding Method Bedside Commode # Voids 1 1 # Bowel Movements 1 - Exam GENERAL: Pt awake and alert, thin-appearing, and in no acute distress. ENT: Neck supple. Dry mucous membranes. LUNGS: Breath sounds course to auscultation. HEART: Heart S1, S2, no S3 or S4. regular rate and rhythm. No murmurs, rubs or gallops. ABDOMEN: Soft, nontender, nondistended, normoactive bowel sounds. No guarding, no rebound. No masses or organomegaly appreciated. SKIN: Circumferential erythema around previous PEG tube site insertion with no obvious purulent drainage noted at this time. - Labs CBC & Chem 7: 03/31/16 17:55 03/31/16 15:15 Assessment and Plan Plan: Impression: 1. Sepsis suspect secondary to infected PEG tube site incision. Wound and blood cultures with preliminary MRSA status post removal of PEG tube. 2. Cellulitis to 2 abdomen where previous PEG tube was inserted. Plan: Continue antibiotics per infectious disease recommendations. Continue local wound care to previous PEG tube site in the form of barrier cream. Continue supportive treatment and pain management. Continue to follow with primary service and consulted. The above impression and plan have been discussed and directed by Dr. Gordon. William BARON acting as scribe for Dr. Gordon.
--- NOTE | 2016-04-02 19:05 | CT ---
EXAMINATION TYPE: CT ChestAbdPelvis w con DATE OF EXAM: 04/02/2016 5:33 PM COMPARISON: CT scan HISTORY: History of Lung Cancer. CT DLP: 425.9 mGycm Automated exposure control for dose reduction was used. CONTRAST: CT scan of the chest, abdomen and pelvis is performed with Oral Contrast and with IV Contrast, patien t injected with 100 mL of Omnipaque 300. FINDINGS: There is a left pneumonectomy. There is shift of heart and mediastinum to the left side. There is a s mall left pleural effusion. The right lung shows patchy interstitial subpleural infiltrates along the right lateral chest wall. T here is some mild pleural thickening on the right lateral chest wall. I see no mediastinal adenopathy. There are no hilar masses. I see no filling defects in the right pul monary artery. There is no evidence of thoracic aortic aneurysm or dissection. There is a small hiata l hernia. Liver shows no focal defect. There are clips from cholecystectomy. Spleen appears normal. There is no pancreatic mass. There is a 2.5 cm low-density left adrenal mass. Kidneys show no hydronephrosis. Th ere is no retroperitoneal adenopathy. I see no intestinal wall thickening. Bladder distends smoothly. There is a right hip prosthesis. There is no ascites. There is no sign of bowel obstruction. Appendi x is not seen. There is no sign of appendicitis. I see no focal bony destructive process. IMPRESSION: There is some fibrotic change with infiltrate and pleural thickening in the right lung that appears i mproved compared to the old CT scan of 8.11.16. I see no new pulmonary density. Left pneumonectomy. E mphysema. Abdomen and pelvis exam shows a stable 2.5 cm left adrenal mass compared to old CT scan of 07/19/2013. Common bile duct is large but no dilation of the intrahepatic bile ducts. This is stable compared to old exam. I do not see evidence of progression of disease compared to previous exams.
[2016-04-02] MEDS: FLUCONAZOLE 100 MG TAB PO SCH (21:23)
[2016-04-03] MEDS: SODIUM CHLORIDE 0.9% 1,000 ML IV SCH ×2 (01:42→13:51)
[2016-04-03] MEDS: LEVOTHYROXINE 50 MCG TAB PEG/G-TUBE SCH (06:35)
[2016-04-03] MEDS ORDERED: PANTOPRAZOLE 40 MG TABLET PO SCH (07:30)
[2016-04-03] MEDS: TIOTROPIUM 18 MCG/PUFF INHALER INHALATION SCH (08:37)
[2016-04-03] MEDS ORDERED: PANTOPRAZOLE 40 MG/10 ML VIAL IV SCH (09:00)
[2016-04-03] MEDS ORDERED: PREGABALIN 75 MG CAP PEG/G-TUBE SCH (09:00)
[2016-04-03 09:12] LABS: Anisocytosis Slight; Basophils % (A) 0 %; CH 26.1; CHCM 30.5; Eosinophils # (A) 0.2 k/uL (0-0.7); Eosinophils % (A) 3 %; HGB 9.5 gm/dL (11.4-16.0); Hypochromasia Moderate; Luc # (Auto) 0.12; Luc % (Auto) 2; Lymphocytes # (A) 0.8 k/uL (1.0-4.8); Lymphocytes % (A) 14 %; MCH 26.5 pg (25.0-35.0); MCHC 30.8 g/dL (31.0-37.0); MCV 86.2 fL (80.0-100.0); Mean Platelet Volume 7.9; Monocytes # (A) 0.3 k/uL (0-1.0); Monocytes % (A) 6 %; Neutrophils # (A) 4.1 k/uL (1.3-7.7); Neutrophils % (A) 74 %; RBC 3.59 m/uL (3.80-5.40); RDW 17.8 % (11.5-15.5); WBC 5.5 k/uL (3.8-10.6); WBC (Perox) 5.79
[2016-04-03 09:29] LABS: Anion Gap 7 mmol/L; Blood Urea Nitrogen 11 mg/dL (7-17); Calcium 8.8 mg/dL (8.4-10.2); Carbon Dioxide 27 mmol/L (22-30); Chloride 111 mmol/L (98-107); Glucose 83 mg/dL (74-99); Non-African American GFR(MDRD) >60 (>60 ml/min/1.73 sqM); Potassium 4.1 mmol/L (3.5-5.1); Sodium 145 mmol/L (137-145)
[2016-04-03] MEDS: VANCOMYCIN 750 MG in SODIUM CHLORIDE 0.9% 250 ML IVPB SCH (09:47)
[2016-04-03] MEDS: MELOXICAM 7.5 MG TAB PO SCH ×2 (09:50→20:41)
[2016-04-03] MEDS: hydrALAZINE HCL 25 MG TAB PO SCH ×2 (09:50→20:41)
[2016-04-03] MEDS: ATENOLOL 50 MG TAB PEG/G-TUBE SCH (09:50)
[2016-04-03] MEDS: LISINOPRIL 10 MG TAB PEG/G-TUBE SCH (09:50)
[2016-04-03] MEDS: CIPROFLOXACIN HCL 500 MG TAB PO SCH ×2 (09:50→20:41)
[2016-04-03] MEDS: buPROPion SR 150 MG TABLET.ER PO SCH ×2 (09:52→20:41)
[2016-04-03] MEDS: ALPRAZolam 0.5 MG TAB PEG/G-TUBE SCH ×2 (09:54→13:13)
[2016-04-03] MEDS: HYDROcodone/APAP 10-325MG 1 EACH TAB PEG/G-TUBE PRN (09:58)
--- NOTE | 2016-04-03 10:09 | PN ---
DATE OF SERVICE: 04/02/2016 REASON FOR FOLLOW-UP: 1. PEG tube site infection. 2. MRSA bacteremia. INTERVAL HISTORY: The patient is afebrile. The patient did have her PEG tube removed yesterday. Overall pain to PEG tube site is currently controlled. Patient denies having any chest pain. No shortness of breath. No cough. No diarrhea. On examination, blood pressure is 146/69 with a pulse of 70, temperature 97.7. She is 98% on room air. General description is an elderly female up in the bed in no distress. RESPIRATORY SYSTEM: Unlabored breathing. Clear to auscultation anteriorly. HEART: S1, S2. Regular rate and rhythm. ABDOMEN: Soft. PEG tube site has some erythema. No drainage. LABS: Hemoglobin is 10.1, white count 5.8 with a BUN of 21, creatinine 0.8. The abdominal culture is MRSA along with the Klebsiella and Morganella. Blood culture with MRSA. DIAGNOSTIC IMPRESSION AND PLAN: Patient with PEG tube site infection, multiple debridements and also with methicillin-resistant Staphylococcus aureus bacteremia. We did order a CT of abdomen and pelvis to make sure there is no evidence of any abscess that may need to be drained. Unfortunately they did not come in until this evening. CT will be reviewed with the radiology tomorrow. Patient will need a PICC line because of her bacteremia and IV vancomycin which a PICC line will be placed tomorrow with blood culture that was done yesterday remains to be negative. As far as the gram-negative will discontinue the Unasyn and start the patient on p.o. Cipro and local wound care switched to Bactroban cream. Continue supportive care. AICHA
[2016-04-03] MEDS ORDERED: NYSTAT-TRIAMCIN 100,000-0.1 UNIT/GM-% CREAM 30 GM TUBE TOPICAL SCH (11:30)
--- NOTE | 2016-04-03 11:58 | P.PN ---
Subjective Principal diagnosis: Sepsis Patient is a 75-year-old female with complex medical history significant for squamous cell neck cancer status post chemo and radiation with chronic esophagitis requiring feeding tube for poor oral intake. Patient presented with complaints of generalized weakness, and redness and drainage around the PEG tube site. Dr. Gordon was consulted for surgical service and PEG tube was removed on 04/01/2016. Final blood cultures positive for MRSA. Final gram stain and wound culture positive for MRSA, Klebsiella oxytoca, and Morganella morganii. Final urine culture positive for Proteus mirabilis. Throat culture in process. Infectious disease consult has been requested for management of IV antibiotics. Patient did undergo a CT of the chest, abdomen, and pelvis on 04/02/2016 with evidence of some fibrotic change with infiltrate and pleural thickening in the right lung improved compared to previous old CT of 11/07/2015; 2.5 cm left adrenal mass, stable; no evidence of progression compared to previous exams; no mentioning of abdominal abscess. Upon examination, states he feels more tired today. Patient is complaining of dryness and pain to the corners of her lips states it's difficult to open her mouth. Patient reports fair appetite without nausea, vomiting, or abdominal pain. Patient denies dysphagia. Patient is urinating without difficulty. Denies increased shortness of breath chest pain. No evidence of fevers. Objective - Vital Signs Vital signs: Vital Signs Temp 96.9 F L 04/03/16 07:00 Pulse 60 04/03/16 07:00 Resp 16 04/03/16 07:00 BP 165/72 04/03/16 07:00 Pulse Ox 100 04/03/16 07:00 Intake & Output 04/02/16 04/03/16 04/03/16 18:59 06:59 18:59 Intake Total 900 800 Balance 900 800 Intake: IV 900 Ampicillin-Sulbactam 1.5 50 gm In Sodium Chloride 0.9 % 50 ml @ 100 mls/hr IVPB Q6HR [facility] Rx#:[id number] Sodium Chloride 0.9% 1, 600 000 ml @ 75 mls/hr IV . [id number] [facility] Rx#:[id number] Vancomycin 750 mg In 250 Sodium Chloride 0.9% 250 ml @ 125 mls/hr IVPB Q24HR [facility] Rx#:[id number] Oral 800 Other: Voiding Method Toilet Bedside Commode # Voids 3 2 # Bowel Movements 2 - Exam GENERAL: Pt awake and alert, thin, and in no acute distress. HEAD: Atraumatic, normocephalic. EYES: Pupils equal and round. ENT: Dry mucous membranes. NECK:Supple without lymphadenopathy or JVD. LUNGS: Breath sounds coarse to auscultation on right side, clear on the left side. HEART: Heart S1, S2, no S3 or S4. Regular rate and rhythm. No murmurs, rubs or gallops. ABDOMEN: Soft, nontender, nondistended, normoactive bowel sounds. No guarding, no rebound. Wound to previous PEG tube site with erythema, minimal drainage at this time. EXTREMITIES: 2+ peripheral pulses. No edema. No calf tenderness. NEUROLOGICAL: Pt oriented x 3. Cranial nerves II through XII grossly intact. Strength and sensation grossly intact. PSYCH: Normal mood, normal affect. SKIN: Warm, dry. - Labs CBC & Chem 7: 04/03/16 08:31 04/03/16 08:31 Labs: Abnormal Lab Results - Last 24 Hours (Table) 04/03/16 04/03/16 Range/Units 08:31 08:31 RBC 3.59 L (3.80-5.40) m/uL Hgb 9.5 L (11.4-16.0) gm/dL Hct 31.0 L (34.0-46.0) % MCHC 30.8 L (31.0-37.0) g/dL RDW 17.8 H (11.5-15.5) % Lymphocytes # 0.8 L (1.0-4.8) k/uL Chloride 111 H (98-107) mmol/L Microbiology - Last 24 Hours (Table) 04/01/16 13:44 Blood Culture - Preliminary Blood No Growth after 24 hours Assessment and Plan Plan: Impression: 1. Infected PEG tube site incision. Blood cultures positive for MRSA. Wound culture positive for MRSA, Klebsiella oxytoca, Morganella Morgagni. Throat culture pending. 2. Urinary tract infection with final urine culture positive for Proteus mirabilis. 3. Cellulitis of the abdomen. 4. Chronic obstructive pulmonary disease. 5. History of recent squamous cell cancer of the neck status post aggressive radiation and chemotherapy. 6. Moderate protein calorie malnutrition secondary to dysphagia secondary to chronic esophagitis with poor oral intake treated with PEG tube feedings. 7. Angular cheilitis. 8. History of constipation. 9. Hypertension. 10. Fibromyalgia. 11. Anxiety neurosis. 12. History of gastroesophageal reflux disease. 13. Medical debility. Plan: Continue antibiotics per infectious disease recommendations. Continue current medications, will add Mycolog cream TID for angular cheilitis. Patient is scheduled for PICC line for IV antibiotics. Continue local wound care in the form of Bactroban to PEG tube site. Dietary consult for malnutrition. Continue GI and DVT prophylaxis. Continue physical therapy. Anticipate discharge to subacute rehab early next week. Repeat CBC and BMP in a.m. The above impression and plan have been discussed and directed by Dr. Bond. William BARON acting as scribe for Dr. Bond.
[2016-04-03] MEDS: PREGABALIN 75 MG CAP PEG/G-TUBE SCH (12:33)
[2016-04-03] MEDS: TRIAMCINOLONE 0.1% CREAM 80 GM TUBE TOPICAL SCH ×2 (13:12→20:42)
[2016-04-03] MEDS: NYSTATIN 100,000UNIT/GM CREAM 30 GM TUBE TOPICAL SCH ×2 (13:12→20:42)
[2016-04-03] MEDS ORDERED: ALPRAZolam 0.5 MG TAB PEG/G-TUBE PRN (13:14)
--- NOTE | 2016-04-03 18:06 | P.PN ---
Subjective Patient is a 75-year-old female admitted with generalized weakness and infected PEG site tube site. PEG tube has been removed. CT of abdomen and pelvis without evidence of abscess. Patient complaining of mouth pain and weakness today. Denies chills, nausea, vomiting, increased shortness of breath , chest pain, or abdominal pain. Patient is tolerating a regular diet. Passing flatus with bowel movements. Urinating without difficulty. Afebrile. Objective - Vital Signs Vital signs: Vital Signs Temp 96.6 F L 04/03/16 15:00 Pulse 55 L 04/03/16 15:00 Resp 18 04/03/16 15:00 BP 96/51 04/03/16 15:00 Pulse Ox 100 04/03/16 15:00 Intake & Output 04/02/16 04/03/16 04/03/16 18:59 06:59 18:59 Intake Total 900 800 200 Balance 900 800 200 Intake: IV 900 Ampicillin-Sulbactam 1.5 50 gm In Sodium Chloride 0.9 % 50 ml @ 100 mls/hr IVPB Q6HR [facility] Rx#:[id number] Sodium Chloride 0.9% 1, 600 000 ml @ 75 mls/hr IV . [id number] [facility]O Rx#:[id number] Vancomycin 750 mg In 250 Sodium Chloride 0.9% 250 ml @ 125 mls/hr IVPB Q24HR [facility] Rx#:[id number] Oral 800 200 Other: Voiding Method Toilet Toilet Bedside Commode Bedside Commode # Voids 3 2 1 # Bowel Movements 2 - Exam GENERAL: Pt awake and alert, thin-appearing, and in no acute distress. ENT: Neck supple. Dry mucous membranes. LUNGS: Breath sounds course to auscultation. HEART: Heart S1, S2, no S3 or S4. regular rate and rhythm. No murmurs, rubs or gallops. ABDOMEN: Soft, nontender, nondistended, normoactive bowel sounds. No guarding, no rebound. No masses or organomegaly appreciated. SKIN: Circumferential erythema around previous PEG tube site insertion with no obvious purulent drainage noted at this time. - Labs CBC & Chem 7: 04/03/16 08:31 04/03/16 08:31 Labs: Abnormal Lab Results - Last 24 Hours (Table) 04/03/16 04/03/16 Range/Units 08:31 08:31 RBC 3.59 L (3.80-5.40) m/uL Hgb 9.5 L (11.4-16.0) gm/dL Hct 31.0 L (34.0-46.0) % MCHC 30.8 L (31.0-37.0) g/dL RDW 17.8 H (11.5-15.5) % Lymphocytes # 0.8 L (1.0-4.8) k/uL Chloride 111 H (98-107) mmol/L Microbiology - Last 24 Hours (Table) 04/01/16 13:44 Blood Culture - Preliminary Blood No Growth after 48 hours Assessment and Plan Plan: Impression: 1. Infected PEG tube site incision status post removal of PEG tube. 2. Cellulitis to abdomen where previous PEG tube was inserted. Plan: Continue antibiotics per infectious disease recommendations. Continue local wound care to previous PEG tube site in the form of Bactroban. Continue supportive treatment and pain management. Continue to follow with primary service and consulted. The above impression and plan have been discussed and directed by Dr. Gordon. William BARON acting as scribe for Dr. Gordon.
[2016-04-03] MEDS: FLUCONAZOLE 100 MG TAB PO SCH (20:40)
[2016-04-03] MEDS: ATENOLOL 50 MG TAB PO SCH (20:41)
[2016-04-03] MEDS: LISINOPRIL 10 MG TAB PO SCH (20:42)
[2016-04-03] MEDS: ALPRAZolam 0.5 MG TAB PO PRN (20:51)
[2016-04-03] MEDS: HYDROcodone/APAP 10-325MG 1 EACH TAB PO PRN (20:51)
[2016-04-04] MEDS: SODIUM CHLORIDE 0.9% 1,000 ML IV SCH ×2 (01:56→17:14)
[2016-04-04] MEDS: LEVOTHYROXINE 50 MCG TAB PO SCH (06:28)
[2016-04-04] MEDS ORDERED: VANCOMYCIN TROUGH DUE 1 EACH MISC MISCELLANE ONE (08:00)
[2016-04-04] MEDS: HYDROcodone/APAP 10-325MG 1 EACH TAB PO PRN ×3 (08:20→22:15)
[2016-04-04] MEDS: ATENOLOL 50 MG TAB PO SCH ×2 (08:21→22:11)
[2016-04-04] MEDS: buPROPion SR 150 MG TABLET.ER PO SCH ×2 (08:22→22:12)
[2016-04-04] MEDS: CIPROFLOXACIN HCL 500 MG TAB PO SCH ×2 (08:22→22:11)
[2016-04-04] MEDS: hydrALAZINE HCL 25 MG TAB PO SCH ×2 (08:23→22:11)
[2016-04-04] MEDS: MELOXICAM 7.5 MG TAB PO SCH ×2 (08:23→22:12)
[2016-04-04] MEDS: LISINOPRIL 10 MG TAB PO SCH ×2 (08:23→22:11)
--- NOTE | 2016-04-04 08:23 | PN ---
DATE OF SERVICE: 04/03/2016 REASON FOR FOLLOW-UP: 1. Abdominal wound polymicrobial. 2. Methicillin-resistant Staphylococcus aureus bacteremia. INTERVAL HISTORY: The patient is afebrile. She is feeling very weak and tired today. The patient denies having any chest pain or shortness of breath or cough and no diarrhea. On examination, blood pressure is 142/50 with a pulse of 78, temperature 96.6. She is 100% on 2 liters nasal cannula. General description is an elderly female lying in bed in no distress. RESPIRATORY SYSTEM: Unlabored breathing. Clear to auscultation anteriorly. HEART: S1, S2 with regular rate and rhythm. ABDOMEN: Soft. LABS: Hemoglobin is 9.5, white count 5.5 with a BUN of 11, creatinine 0.84. DIAGNOSTIC IMPRESSION AND PLAN: Patient with Methicillin-resistant Staphylococcus aureus abdominal wound/ PEG site infection with bacteremia. I did review her CT of abdomen and pelvis with Dr. Jimenez. There is no evidence of any abscess collection. Patient's follow-up blood culture has been negative. She will get a PICC line and will need to continue on vancomycin, pharmacy to dose, for at least two weeks from her negative blood culture. As far as the gram-negative, the patient continues on Cipro with close outpatient follow-up.
[2016-04-04] MEDS: PANTOPRAZOLE 40 MG TABLET PO SCH (08:24)
[2016-04-04] MEDS: TRIAMCINOLONE 0.1% CREAM 80 GM TUBE TOPICAL SCH ×3 (08:24→22:12)
[2016-04-04] MEDS: PREGABALIN 75 MG CAP PO SCH ×2 (08:25→12:01)
[2016-04-04] MEDS: NYSTATIN 100,000UNIT/GM CREAM 30 GM TUBE TOPICAL SCH ×3 (08:25→22:12)
[2016-04-04 09:28] LABS: Anisocytosis Slight; Basophils % (A) 0 %; CH 26.1; Eosinophils # (A) 0.2 k/uL (0-0.7); Eosinophils % (A) 2 %; HCT 32.5 % (34.0-46.0); HDW 2.77; HGB 9.8 gm/dL (11.4-16.0); Hypochromasia Marked; Luc % (Auto) 1; Lymphocytes # (A) 0.8 k/uL (1.0-4.8); Lymphocytes % (A) 11 %; MCH 26.3 pg (25.0-35.0); MCV 87.5 fL (80.0-100.0); Mean Platelet Volume 7.6; Monocytes # (A) 0.5 k/uL (0-1.0); Monocytes % (A) 6 %; Neutrophils # (A) 5.6 k/uL (1.3-7.7); Neutrophils % (A) 79 %; RBC 3.71 m/uL (3.80-5.40); RDW 17.5 % (11.5-15.5); WBC 7.2 k/uL (3.8-10.6); WBC (Perox) 7.66
[2016-04-04 09:39] LABS: Anion Gap 7 mmol/L; Blood Urea Nitrogen 11 mg/dL (7-17); Calcium 9.1 mg/dL (8.4-10.2); Carbon Dioxide 26 mmol/L (22-30); Chloride 108 mmol/L (98-107); Glucose 94 mg/dL (74-99); Non-African American GFR(MDRD) >60 (>60 ml/min/1.73 sqM); Potassium 4.2 mmol/L (3.5-5.1); Sodium 141 mmol/L (137-145)
[2016-04-04] MEDS: TIOTROPIUM 18 MCG/PUFF INHALER INHALATION SCH (09:52)
[2016-04-04] MEDS: VANCOMYCIN 750 MG in SODIUM CHLORIDE 0.9% 250 ML IVPB SCH (09:59)
--- NOTE | 2016-04-04 13:09 | PN ---
She is doing better today. Still fatigued, tired. At this time her vital signs are stable with 98.4 temperature, heart rates in the 60s, respirations 16, 99% on room air, 148/60 blood pressure. This is a white female who came in very weak and fatigued, ended up having a positive blood culture for MRSA from 03/31/16. She had one on 04/01/16 but that was after antibiotics were started and that also negative. Urine culture was positive for Proteus mirabilis and her abdominal culture was positive for methicillin resistance Klebsiella and Morganella morganii. At this time her chest is essentially clear to auscultation. HEART: Sinus rhythm. Abdomen is soft. Her area where the PEG tube was removed is covered. Negative extremities. ASSESSMENT: 1. Bacteremia with methicillin-resistant Staphylococcus aureus, abdominal culture positive for Klebsiella and Morganella morganii and positive Proteus mirabilis culture positive with a negative throat culture. 2. Moderately severe urinary tract infection. 3. Wound infection around the PEG tube removal. 4. 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 5. Previous pneumectomy 11 years ago for left lung removal, non-small cell carcinoma of the lung. 6. Long-standing history of chronic obstructive pulmonary disease. 7. Previous [id number] diabetes mellitus, which has stabilized. 8. Previous history of fibromyalgia. 9. Esophagitis secondary from radiation. 10. Cellulitis of the abdomen. The patient was considered to be septic, so she was put on IV fluids. Antibiotics accordingly. Nutritional support at this time is being given. Will continue her on her same antibiotics and her prognosis is guarded.
[2016-04-04] MEDS: FLUCONAZOLE 100 MG TAB PO SCH (22:11)
[2016-04-04] MEDS: ALPRAZolam 0.5 MG TAB PO PRN (22:15)
[2016-04-05] MEDS: SODIUM CHLORIDE 0.9% 1,000 ML IV SCH ×2 (05:35→20:14)
[2016-04-05] MEDS: VANCOMYCIN 1,000 MG in SODIUM CHLORIDE 0.9% 250 ML IVPB SCH (05:35)
[2016-04-05] MEDS: LEVOTHYROXINE 50 MCG TAB PO SCH (05:36)
[2016-04-05] MEDS: ATENOLOL 50 MG TAB PO SCH ×2 (07:50→20:01)
[2016-04-05] MEDS: buPROPion SR 150 MG TABLET.ER PO SCH ×2 (07:50→20:01)
[2016-04-05] MEDS: hydrALAZINE HCL 25 MG TAB PO SCH ×2 (07:51→20:04)
[2016-04-05] MEDS: MELOXICAM 7.5 MG TAB PO SCH ×2 (07:51→20:07)
[2016-04-05] MEDS: LISINOPRIL 10 MG TAB PO SCH ×2 (07:51→20:04)
[2016-04-05] MEDS: CIPROFLOXACIN HCL 500 MG TAB PO SCH ×2 (07:51→20:01)
[2016-04-05] MEDS: PANTOPRAZOLE 40 MG TABLET PO SCH (07:52)
[2016-04-05] MEDS: PREGABALIN 75 MG CAP PO SCH ×2 (07:53→13:03)
[2016-04-05] MEDS: HYDROcodone/APAP 10-325MG 1 EACH TAB PO PRN ×2 (07:54→18:22)
[2016-04-05] MEDS: TIOTROPIUM 18 MCG/PUFF INHALER INHALATION SCH (08:44)
[2016-04-05 09:40] LABS: Anion Gap 8 mmol/L; Blood Urea Nitrogen 8 mg/dL (7-17); Calcium 9.2 mg/dL (8.4-10.2); Carbon Dioxide 27 mmol/L (22-30); Chloride 105 mmol/L (98-107); Glucose 138 mg/dL (74-99); Non-African American GFR(MDRD) >60 (>60 ml/min/1.73 sqM); Potassium 4.1 mmol/L (3.5-5.1); Sodium 140 mmol/L (137-145)
[2016-04-05] MEDS: TRIAMCINOLONE 0.1% CREAM 80 GM TUBE TOPICAL SCH ×3 (10:48→20:08)
[2016-04-05] MEDS: NYSTATIN 100,000UNIT/GM CREAM 30 GM TUBE TOPICAL SCH ×3 (10:48→20:08)
--- NOTE | 2016-04-05 11:10 | PN ---
DATE OF SERVICE: 04/04/2016 Reason for follow-up: MRSA bacteremia INTERVAL HISTORY: The patient is afebrile. She is complaining of feeling weak and tired. The patient could not get her PICC line yesterday because of radiology department being busy and backed up. Now scheduled for Wednesday. Denies any abdominal pain or any diarrhea. On examination, blood pressure is 152/66 with a pulse of 79, temperature 97.3, she is 100% on 2 liters nasal cannula. General description is an elderly female, lying in bed in no distress. RESPIRATORY SYSTEM: Unlabored breathing. Clear to auscultation anteriorly. HEART: S1, S2. Regular rate and rhythm. ABDOMEN: Soft. The percutaneous endoscopic gastrostomy feeding tube site overall swelling and redness has improved. No drainage. LABS: Hemoglobin 9.8, white count 7.2, with a BUN of 11, creatinine 0.80. Follow-up blood culture was negative. DIAGNOSTIC IMPRESSION AND PLAN: Patient with Methicillin-resistant Staph aureus bacteremia secondary to the PEG tube site infection which also grew Klebsiella Morganella and Proteus in the urine. The patient is currently covered with vancomycin and p.o. Cipro that will be continued for another two weeks, awaiting PICC line placement. Continue supportive care. AICHA
--- NOTE | 2016-04-05 15:43 | PN ---
This is a 63-year-old white female that came back with positive blood culture with MRSA x2. Also wound culture with MRSA, Klebsiella and Morganella morganii and Proteus mirabilis in the urine. She has been on Cipro. She has been on Diflucan and she has also been of vancomycin. At this time, her vital signs are stable with a blood pressure of 147/56, heart rate is in the 70s, respiratory rate is 16, and temperature is 97. ENT is within normal limits. Neck is supple. Midline trachea. Chest is essentially clear to auscultation. Heart is sinus rhythm. Abdomen is negative with negative Dianelys. ASSESSMENT: 1. Sepsis with methicillin-resistant Staphylococcus aureus, abdominal culture Klebsiella and Morganella morganii and positive for Proteus with urinary culture, also a negative full culture. 2. Moderate urinary tract infection, wound infection around the PEG tube. At this place, the PEG tube was removed. The skin looks good. 3. History of cancer of the neck with recent metastatic disease, is treated with chemo and radiation. 4. Esophagitis. 5. Previous pneumectomy for her left lung removal of non-small cell carcinoma of the lung. 6. Long-standing chronic obstructive pulmonary disease, resolving. 7. Insulin-dependent diabetes mellitus. 8. History of fibromyalgia. 9. Cellulitis of the abdomen. 10. Esophagitis from previous radiation, resolving. 11. Fibromyalgia. PLAN: We will continue the same IV antibiotics now that a PEG tube has been put in. Please refer to Dr. Rader's note. She will be on oral Cipro, she will be on IV vancomycin for a 2-week period of time. Blood cultures will be repeated before DC IV antibiotics. Will continue on the same medication and prognosis guarded.
[2016-04-05] MEDS: FLUCONAZOLE 100 MG TAB PO SCH (20:01)
[2016-04-05] MEDS: ALPRAZolam 0.5 MG TAB PO PRN (20:14)
[2016-04-06] MEDS: VANCOMYCIN 1,000 MG in SODIUM CHLORIDE 0.9% 250 ML IVPB SCH (05:10)
[2016-04-06] MEDS: LEVOTHYROXINE 50 MCG TAB PO SCH (05:11)
[2016-04-06] MEDS: TIOTROPIUM 18 MCG/PUFF INHALER INHALATION SCH (08:03)
[2016-04-06] MEDS: CIPROFLOXACIN HCL 500 MG TAB PO SCH (08:56)
[2016-04-06] MEDS: hydrALAZINE HCL 25 MG TAB PO SCH (08:56)
[2016-04-06] MEDS: ATENOLOL 50 MG TAB PO SCH (08:57)
[2016-04-06] MEDS: MELOXICAM 7.5 MG TAB PO SCH (08:57)
[2016-04-06] MEDS: PANTOPRAZOLE 40 MG TABLET PO SCH (08:57)
[2016-04-06] MEDS: buPROPion SR 150 MG TABLET.ER PO SCH (08:57)
[2016-04-06] MEDS: LISINOPRIL 10 MG TAB PO SCH (08:59)
[2016-04-06] MEDS: PREGABALIN 75 MG CAP PO SCH ×2 (08:59→13:22)
[2016-04-06] MEDS: NYSTATIN 100,000UNIT/GM CREAM 30 GM TUBE TOPICAL SCH (09:00)
[2016-04-06] MEDS: TRIAMCINOLONE 0.1% CREAM 80 GM TUBE TOPICAL SCH (09:00)
[2016-04-06] MEDS: HYDROcodone/APAP 10-325MG 1 EACH TAB PO PRN (09:07)
[2016-04-06 09:19] LABS: Anion Gap 7 mmol/L; Blood Urea Nitrogen 8 mg/dL (7-17); Calcium 9.1 mg/dL (8.4-10.2); Carbon Dioxide 28 mmol/L (22-30); Chloride 106 mmol/L (98-107); Glucose 173 mg/dL (74-99); Non-African American GFR(MDRD) >60 (>60 ml/min/1.73 sqM); Sodium 141 mmol/L (137-145)
[2016-04-06] MEDS ORDERED: LIDOCAINE 2% INJ 20 MG/ML SQ ONE (11:53)
[2016-04-06] MEDS ORDERED: LIDOCAINE 2% INJ 20 MG/ML (20 ML MDV) ONE (13:00)
[2016-04-06] MEDS: SODIUM CHLORIDE 0.9% 1,000 ML IV SCH (13:21)
[2016-04-06] MEDS: ALPRAZolam 0.5 MG TAB PO PRN (13:22)
--- NOTE | 2016-04-06 13:24 | P.DS ---
Providers Date of admission: 03/31/16 19:32 Expected date of discharge: 04/06/16 Attending physician: Edy Bond Consults: 03/31/16 19:34 Consult Physician Urgent Consulting Provider: Anupam Gordon Consult Reason/Comments: eval peg tube. 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 Patient presented with complaints of generalized weakness, and redness and drainage around the PEG tube site. Dr. Gordon was consulted for surgical service and PEG tube was removed. Patient did have positive blood cultures with methicillin resistant Staphylococcus aureus 2 and wound culture positive for MRSA. Urine culture positive for Klebsiella and Morganella Morgarnii and Proteus mirabilis. Patient was seen and evaluated by infectious disease service and started on Cipro, Diflucan, and vancomycin. Patient received a PICC line for IV antibiotics and was deemed stable for discharge to [facility] for subacute rehab. Discharge diagnoses: 1. Sepsis with methicillin-resistant Staphylococcus aureus, abdominal wound culture positive for MRSA, Klebsiella and Morganella Morgagni and urine culture positive for Proteus with urine culture. 2. Urinary tract infection. 3. Wound infection around the PEG tube status post PEG tube removal. 4. History of cancer of the neck with recent metastatic disease status post chemo and radiation. 5. Esophagitis from previous radiation, resolving. 6. Previous pneumonectomy for her left lung removal of non-small cell carcinoma. 7. Long-standing chronic obstructive pulmonary disease, resolving. 8. Diabetes mellitus, insulin-dependent. 9. History of fibromyalgia. 10. Cellulitis of the abdomen. 11. Moderate protein calorie malnutrition secondary to dysphagia secondary to chronic esophagitis with poor oral intake. 12. Angular cheilitis. 13. History of constipation. 14. Hypertension. 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 16. History of GERD. 17. Medical debility. The above impression and plan have been discussed and directed by Dr. Bond. William BARON acting as scribe for Dr. Bond. Pertinent Studies: Chest x-ray; EKG; chest/abdomen/pelvis CT Procedures: Insertion of PICC line Patient Condition at Discharge: Good Plan - Discharge Summary New Discharge Prescriptions: ALPRAZolam [Xanax] 1 mg PEG/G-TUBE BID #14 tab Ciprofloxacin HCl [Cipro] 500 mg PO BID #28 tab HYDROcodone/APAP 10-325MG [[place] 10-325] 1 each PO Q6HR PRN #28 tab PRN Reason: Pain Scale 6 To 10 Mupirocin 2% Oint [Bactroban 2% Oint] 1 applic TOPICAL BID 7 Days Nystatin 100,000Unit/gm Cream [Mycostatin Cream] 1 applic TOPICAL TID 14 Days Discharge Medication List Lisinopril [Zestril] 10 mg PEG/G-TUBE BID 05/20/15 [History] Pregabalin [Lyrica] 150 mg PEG/G-TUBE HS 05/20/15 [History] Albuterol Nebulized [Ventolin Nebulized] 2.5 mg INHALATION RT-QID PRN 08/15/15 [ History] Pregabalin [Lyrica] 75 mg PEG/G-TUBE QAM 08/15/15 [History] Atenolol [Tenormin] 50 mg PEG/G-TUBE BID 03/31/16 [History] Levothyroxine Sodium [Synthroid] 50 mcg PEG/G-TUBE DAILY 03/31/16 [History] Meloxicam [Mobic] 7.5 mg PO BID 03/31/16 [History] Omeprazole 20 mg PEG/G-TUBE BID 03/31/16 [History] Tiotropium Braggs [Spiriva] 1 cap INHALATION RT-DAILY 03/31/16 [History] buPROPion HCL [buPROPion HCL SR] 150 mg PEG/G-TUBE BID 03/31/16 [History] ALPRAZolam [Xanax] 1 mg PEG/G-TUBE BID #14 tab 04/06/16 [Rx] Ciprofloxacin HCl [Cipro] 500 mg PO BID #28 tab 04/06/16 [Rx] HYDROcodone/APAP 10-325MG [[place] 10-325] 1 each PO Q6HR PRN #28 tab 04/06/16 [Rx ] Mupirocin 2% Oint [Bactroban 2% Oint] 1 applic TOPICAL BID 7 Days 04/06/16 [Rx] Nystatin 100,000Unit/gm Cream [Mycostatin Cream] 1 applic TOPICAL TID 14 Days [Rx] Triamcinolone 0.1% Cream [Kenalog] 1 applic TOPICAL TID #14 applic 04/06/16 [Rx] Vancomycin 1,000 mg IVPB Q24H 14 Days 04/06/16 [Rx] hydrALAZINE HCL [Apresoline] 25 mg PO BID tab 04/06/16 [Rx] Follow up Appointment(s)/Referral(s): Eyd Bond MD [Primary Care Provider] - 1-2 days Tee Rader MD [STAFF PHYSICIAN] - 1 Week Ambulatory/Diagnostic Orders: Basic Metabolic Panel [LAB.AMB] Time Frame: 04/13/16, Location: Determined By Patient Complete Blood Count w/diff [LAB.AMB] Time Frame: 04/13/16, Location: Determined By Patient Activity/Diet/Wound Care/Special Instructions: Heart healthy diet Discharge Disposition: TRANSFER TO SNF/ECF
--- NOTE | 2016-04-06 14:50 | IR ---
EXAMINATION TYPE: IR cvc insert >=5 years DATE OF EXAM: 04/06/2016 12:09 PM COMPARISON: NONE CLINICAL HISTORY: Infection Needs long-term intravenous access for antibiotics. PROCEDURE: After informed consent, the skin overlying the upper extremity vein was localized with ultrasound and noted to be compressible and patent. An ultrasound image was obtained and submitted on the patient' s chart. The overlying skin was prepped and draped and Lidocaine was used for local anesthesia. A s kin henny was made with a scalpel. Access was gained to the vein under ultrasound guidance with a 21 gauge needle and a 0.018 inch wire was advanced. Access site was dilated with Peel-Away sheath and c atheter tailored to the appropriate length and advanced such that the distal tip is at the cavoatrial junction. Spot image was obtained verifying placement. Catheter was fixed to the skin with suture and a sterile dressing was placed following hemostasis. Catheter was aspirated and flushed with sali ne. Patient was discharged in stable condition without complication. Maximal barrier technique is ut ilized. Ultrasound image is documented on the chart. Ultrasound used with sterile technique. Fluoro time and fluoroscopic images submitted to document procedure: 42 intraoperative C-arm images, 0.5 minutes fluoroscopy time IMPRESSION: STATUS POST ULTRASOUND AND FLUOROSCOPIC GUIDED PICC LINE PLACEMENT, READY FOR USE. THIS PROCEDURE WAS PERFORMED BY THE UNDERSIGNED.
--- NOTE | 2016-04-06 15:57 | PN ---
DATE OF SERVICE: 04/05/2016 Reason for follow-up: 1. Methicillin-resistant Staph aureus bacteremia. 2. Methicillin-resistant Staph aureus PEG site infection. INTERVAL HISTORY: The patient is afebrile, feeling slightly better. Breathing comfortably. Denies any chest pain or cough. No significant worsening abdominal pain. No drainage from the PEG tube site. No diarrhea. On examination, blood pressure 146/68 with a pulse of 56, temperature 98.6. She is 100 percent on 2 liters nasal cannula. General description is an elderly female up in the bed in no distress. RESPIRATORY SYSTEM: Unlabored breathing. Clear to auscultation anteriorly. HEART: S1, S2 with regular rate and rhythm. ABDOMEN: Soft, no tenderness. LABS: Hemoglobin is 9.8, white count 7.2 with a BUN of 8, creatinine 0.81. DIAGNOSTIC IMPRESSION AND PLAN: Patient with methicillin-resistant Staphylococcus aureus bacteremia, secondary to PEG tube site infection that has been discontinued. Follow-up blood culture negative , waiting for the PICC line placement outpatient IV antibiotic for at least 2 weeks along with oral Cipro to cover for gram-negative. Continue supportive care. MTDD
[2016-04-06 16:37] VITALS: BP 160/71; PULSE 68; RESP 18; TEMP 98.7
--- NOTE | 2016-04-06 18:53 | PN ---
DATE OF SERVICE: 04/06/2016 REASON FOR FOLLOWUP: PEG tube site infection with secondary bacteremia and oral thrush. INTERVAL HISTORY: The patient is afebrile. She is feeling better. The patient denies having any chest pain or cough. No abdominal pain or any diarrhea. On examination, blood pressure is 191/83 with a pulse of 55, temperature 97.1. She is 97% on 2 L nasal cannula. General description is an elderly female lying in bed in no distress. RESPIRATORY SYSTEM: Unlabored breathing. Clear to auscultation anteriorly. HEART: S1, S2. Regular rate and rhythm. ABDOMEN: Soft. No tenderness. LABS: BUN of 8, creatinine 0.78. Follow-up blood culture from April 01 is negative. DIAGNOSTIC IMPRESSION AND PLAN: Patient with PEG tube site infection, status post removal of the PEG tube, with significant bacteremia. Follow-up blood culture was negative. The patient is on vancomycin, now with p.o. Cipro. That will be continued for 2 weeks with outpatient followup. For oral thrush she will be given nystatin swish and swallow. Plan of care was discussed with the nurse practitioner for the primary team.
== END 2016-04-06 18:12 | DRG 393 ==
LOC: EC 14:12 → 4MS4W 19:32
PROVIDERS: ADMIT Family Medicine; ATTEND Family Medicine
PROC: 0DP6XUZ Removal of Feeding Device from Stomach, External Approach (ICD-10-PCS; 2016-04-01)
PROC: 02HV33Z Insertion of Infusion Device into Superior Vena Cava, Percutaneous Approach (ICD-10-PCS; principal; 2016-04-06 11:30)
DX: K94.22 Gastrostomy infection (principal); A41.02 Sepsis due to Methicillin resistant Staphylococcus aureus; B37.0 Candidal stomatitis; E44.0 Moderate protein-calorie malnutrition; J44.9 Chronic obstructive pulmonary disease, unspecified; R13.19 Other dysphagia; L03.311 Cellulitis of abdominal wall; N39.0 Urinary tract infection, site not specified; Z68.1 Body mass index [BMI] 19.9 or less, adult; K20.8 Other esophagitis; K21.0 Gastro-esophageal reflux disease with esophagitis; B96.4 Proteus (mirabilis) (morganii) as the cause of diseases classified elsewhere; B96.1 Klebsiella pneumoniae [K. pneumoniae] as the cause of diseases classified elsewhere; E27.9 Disorder of adrenal gland, unspecified; R07.0 Pain in throat; R68.2 Dry mouth, unspecified; R53.1 Weakness; E11.9 Type 2 diabetes mellitus without complications; M79.7 Fibromyalgia; I10 Essential (primary) hypertension; K59.00 Constipation, unspecified; K13.0 Diseases of lips; E78.5 Hyperlipidemia, unspecified; M19.90 Unspecified osteoarthritis, unspecified site; F41.1 Generalized anxiety disorder; F32.9 Major depressive disorder, single episode, unspecified; Z79.1 Long term (current) use of non-steroidal anti-inflammatories (NSAID); Z79.891 Long term (current) use of opiate analgesic; Z92.3 Personal history of irradiation; Z90.2 Acquired absence of lung [part of]; Z92.21 Personal history of antineoplastic chemotherapy; Z87.440 Personal history of urinary (tract) infections; Z85.118 Personal history of other malignant neoplasm of bronchus and lung; Z79.51 Long term (current) use of inhaled steroids; Z79.899 Other long term (current) drug therapy; Z98.1 Arthrodesis status; Z87.891 Personal history of nicotine dependence; Z82.49 Family history of ischemic heart disease and other diseases of the circulatory system; Z98.49 Cataract extraction status, unspecified eye; Z87.81 Personal history of (healed) traumatic fracture; Z86.14 Personal history of Methicillin resistant Staphylococcus aureus infection; Z87.01 Personal history of pneumonia (recurrent); Z90.710 Acquired absence of both cervix and uterus; Z90.49 Acquired absence of other specified parts of digestive tract; Y84.2 Radiological procedure and radiotherapy as the cause of abnormal reaction of the patient, or of later complication, without mention of misadventure at the time of the procedure
CPT/HCPCS: 36415; 36569; 71020; 71260; 74177; 76937; 77001; 80048; 80053; 80202; 81001; 82533; 82550; 82553; 83605; 84484; 85025; 85610; 85730; 87040; 87070; 87077; 87081; 87086; 87186; 87205; 87430; 93005; 94640; 94760; 96361; 99285